=== PATIENT | male | born 1950 | race Hispanic/Latino ===

== ENCOUNTER 2017-05-21 07:15 | Day surgery (SDC) | payer BC ==
[2017-05-17 08:51] VITALS: BMI 34.6
[2017-05-21 07:53] LABS: BASO # 0.09 K/mm3 (0.0-2.0); BASO % 0.9 % (0.0-3.0); EOS # 0.6 (0.0-0.7); EOS % 5.5 % (1.5-5.0); GRAN # 6.59 (1.4-6.5); GRAN % 63.8 % (50.0-68.0); HEMATOCRIT 43.4 % (36.0-48.0); LYMPH # 2.1 (1.2-3.4); LYMPH % 20.1 % (22.0-35.0); MEAN CELL VOLUME 94.6 fl (80.0-105.0); MEAN CORPUSCULAR HEMOGLOBIN 32.7 pg (25.0-35.0); MEAN CORPUSCULAR HGB CONC 34.6 g/dl (31.0-37.0); MEAN PLATELET VOLUME 10.2 fl (7.0-11.0); MONO % 9.7 % (1.0-6.0); RED CELL DISTRIBUTION WIDTH 13.2 % (11.5-14.5); WHITE BLOOD COUNT 10.3 10^3/ul (4.5-11.0)
[2017-05-21 08:05] LABS: INR 1.13 (0.93-1.08); PARTIAL THROMBOPLASTIN TIME 30.1 Seconds (25.1-36.5)
[2017-05-21 08:07] LABS: BLOOD UREA NITROGEN 12 mg/dL (7-21); CALCIUM 9.1 mg/dL (8.4-10.5); CARBON DIOXIDE 31 mmol/L (21-33); CHLORIDE 102 mmol/L (98-107); CHOLESTEROL 190 mg/dL (130-200); GFR AFRICAN-AMERICAN > 60; GLUCOSE,RANDOM 121 mg/dL (70-110); POTASSIUM 3.3 mmol/L (3.6-5.0); SODIUM 140 mmol/L (132-148)
--- NOTE | 2017-05-21 08:16 | HP ---
REASON FOR ADMISSION: Implantation of permanent pacemaker. HISTORY OF PRESENT ILLNESS: This is a 67-year-old male with past medical history of sick sinus syndrome, chronic atrial fibrillation for many years, slow ventricular rate, pacemaker was suggested after having Holter for two to three months, but the patient has some social issues including the is getting a surgery, so the patient wanted to hold it off. The patient states that at times, he becomes dizzy when try to standup. Holter was then found to have lowest heart rate of 30, so the patient is scheduled for elective single chamber pacemaker on Sunday. The patient is electively being admitted for pacemaker implantation. PAST MEDICAL HISTORY: Significant for chronic atrial fibrillation with slow ventricular response, sick sinus syndrome, and benign prostatic hypertrophy. REVIEW OF SYSTEMS: As per HPI. Previous cardiac workup as follows; the patient had a stress test done that was essentially negative. The patient had echo showed [id number] MR, [id number] TR, and RV systolic pressure of 30, dated 11/14/2016. The patient had a stress test also on 11/14/2016, a stress thallium walk on the treadmill for 7 minutes and 30 seconds, but thallium was negative. Holter shows a lowest heart rate of 35, highest was in the 125, mean with a 65, dated 04/02/2017, by that time, the patient's heart rate greater than 30 and becomes very dizzy, especially when try to standup. The patient works in a plastic factory. ALLERGIES: NO KNOWN DRUG ALLERGIES. CURRENT MEDICATIONS: The patient is taking aspirin, amlodipine 10 mg, olmesartan 40 mg, Ginkgo biloba 500 mg daily, vitamin D2, Colace, Pradaxa 150 mg daily, last dose on 05/17/2017, turmeric powder, Flomax, potassium chloride, meclozine, and glucosamine. PHYSICAL EXAMINATION: VITAL SIGNS: As follows; height of the patient 5 feet 7 inches, weight of the patient is 221 pounds, and body mass index of 34.6 kg/m2. HEENT: PERRLA intact. NECK: Supple. No carotid bruits or thyromegaly. CHEST: Clear to auscultation. HEART: S1 and S2 regular. ABDOMEN: Soft. EXTREMITIES: Clubbing and cyanosis negative. IMPRESSION: Sick sinus syndrome, atrial fibrillation with slow ventricular rate, hypertension, hyperlipidemia, benign prostatic hypertrophy, and chronic atrial fibrillation for many years, on Pradaxa. RECOMMENDATIONS: Risks, benefits, and alternatives were discussed with the patient and the patient agreed. We will proceed for a permanent pacemaker. After the pacemaker, we will put low dose of beta-bobby to prevent tachycardia. Further recommendation after the pacemaker. Thank you for providing me the opportunity in taking care of patient, Jamie Beltrán. Franki Saab MD
[2017-05-21] MEDS ORDERED: Potassium Chloride 20 mEq ER Tab PO ONE (09:13)
[2017-05-21] MEDS ORDERED: Lidocaine 2% Inj (20ml) ONE ×2 (09:36→09:55)
[2017-05-21] MEDS ORDERED: Midazolam 2 MG/2 ML VIAL ONE (10:27)
[2017-05-21] MEDS ORDERED: Oxycodone/Acetaminophen 5/325 mg Tab PO PRN (12:23)
--- NOTE | 2017-05-21 12:31 | CARD ---
APPROVED REPORT HISTORY The Patient is a 67 year-old male with a history of Ch Afib with Slow VR and near Syncope PROCEDURES Insertion Single Chamber Ventricle Pacemaker MRI safe ADVISA SR, Medtronic VVIR ( single Chamber) INDICATIONS SSS Ch. Afib with slow VR , Heart rate 30's, Symptomatic Dizzyness Near syncope CONSCIOUS SEDATION AGENTS Versed Fentanyl IMPLANTED DEVICES Medtronic 5076-58CM V lead MRI Safe.. Active lead Pulse Generator. ADVISA SR MRI safe OPERATIVE NOTE The patient was brought to the Cardiac Catheterization Laboratory in a fasting state and was prepped and draped in a sterile manner. The left subclavian region was infiltrated with 2% Lidocaine, subcutaneous anesthesia. A transverse incision was made in the left subclavicular area. The subcutaneous pocket was formed via blunt dissection, Percutaneous venous access was achieved and an introducer sheath was inserted into the Lt Subclavian vein. Through the introducer sheath, the ventricular lead wire was postitioned in the right ventricular apex utilizing fluoroscopic guidance. The ventricular was advanced over the wire under fluoroscopic guidance and positioned in the right ventricle. Capturing and sensing thresholds were verified. THE VENTRICULAR ELECTRODE PARAMETERS R WAVE 7-8 THRESHOLD0.4 RESISTANCE 650 The ventricular lead was then secured using 0 silk. The subcutaneous pocket was irrigated with Betadine. The ventricular lead was attached to the appropriate receptacle on the pulse generator and set screws firmly tightened to insure adequate contact and stability. The lead and pulse generator were placed into the subcutaneous pocket. Sharp and sponge counts were confirmed to be correct. At this time the pocket was closed subcutaneously with a vicryl 2.0 and the skin was closed with a vicryl 4.0 .The operative site was dressed in sterile fashion. The patient tolerated the procedure well and was transferred to the floor in stable condition. COMPLICATIONS The patient tolerated the procedure well and there were no complications associated with the procedure. CONCLUSION Successful Implantation of Single Chamber pacemaker VVIR, ADVISA SR MRI safe ( pt can have MRI in future). CC; Dr. Jordan.
--- NOTE | 2017-05-21 13:41 | RAD ---
HISTORY: S /p Post Pacemaker, R/o Pneumothorax COMPARISON: No prior. FINDINGS: LUNGS: There is a patchy infiltrate at the right lung base PLEURA: No significant pleural effusion identified, no pneumothorax apparent. CARDIOVASCULAR: Normal. OSSEOUS STRUCTURES: No significant abnormalities. VISUALIZED UPPER ABDOMEN: Normal. OTHER FINDINGS: Single lead pacemaker IMPRESSION: Patchy infiltrate at the right lung base
[2017-05-21 22:23] VITALS: PULSE 60
--- NOTE | 2017-05-21 23:12 | CARD ---
APPROVED REPORT EKG Measurement Heart [id number] <Conclusion> Electronic ventricular pacemaker
[2017-05-22 06:01] VITALS: RESP 20; TEMP 98; O2SAT 93
[2017-05-22 07:20] LABS: BASO # 0.1 K/mm3 (0.0-2.0); EOS # 0.5 (0.0-0.7); EOS % 4.9 % (1.5-5.0); GRAN % 57.3 % (50.0-68.0); HEMATOCRIT 44.7 % (42.0-52.0); LYMPH # 2.9 (1.2-3.4); LYMPH % 27.4 % (22.0-35.0); MEAN CELL VOLUME 94.1 fl (80.0-105.0); MEAN CORPUSCULAR HEMOGLOBIN 31.6 pg (25.0-35.0); MEAN CORPUSCULAR HGB CONC 33.6 g/dl (31.0-37.0); MEAN PLATELET VOLUME 10.5 fl (7.0-11.0); MONO % 9.4 % (1.0-6.0); RED CELL DISTRIBUTION WIDTH 13.2 % (11.5-14.5); WHITE BLOOD COUNT 10.5 10^3/ul (4.5-11.0)
[2017-05-22 07:39] LABS: ALB/GLOB RATIO 1.5 (1.1-1.8); ALKALINE PHOSPHATASE 72 U/L (38-126); ALT/SGPT 26 U/L (7-56); AST/SGOT 18 U/L (17-59); BILIRUBIN,TOTAL 0.7 mg/dL (0.2-1.3); BLOOD UREA NITROGEN 15 mg/dL (7-21); CALCIUM 8.8 mg/dL (8.4-10.5); CARBON DIOXIDE 31 mmol/L (21-33); CHLORIDE 103 mmol/L (98-107); GFR AFRICAN-AMERICAN > 60; GLUCOSE,RANDOM 106 mg/dL (70-110); PHOSPHOROUS 2.8 mg/dL (2.5-4.5); POTASSIUM 3.2 mmol/L (3.6-5.0); SODIUM 139 mmol/L (132-148); TOTAL PROTEIN 6.3 g/dL (5.8-8.3)
[2017-05-22] MEDS ORDERED: Potassium Chloride 20 mEq ER Tab PO ONE ×2 (07:46→11:00)
[2017-05-22 09:37] VITALS: BP 120/76
--- NOTE | 2017-05-22 10:17 | RAD ---
HISTORY: s/p PPM ,R/o Pneumothorax COMPARISON: 05/21/2017 TECHNIQUE: Chest PA and lateral FINDINGS: LUNGS: No active pulmonary disease. PLEURA: No significant pleural effusion identified. No pneumothorax apparent. CARDIOVASCULAR: Normal. OSSEOUS STRUCTURES: No significant abnormalities. VISUALIZED UPPER ABDOMEN: Normal. OTHER FINDINGS: Single lead pacemaker IMPRESSION: No evidence of pneumothorax following pacemaker placement
--- NOTE | 2017-05-22 22:14 | CARD ---
APPROVED REPORT EKG Measurement Heart [id number] <Conclusion> Electronic ventricular pacemaker
--- NOTE | 2017-05-22 23:29 | DS ---
BRIEF CLINICAL HISTORY: This 67-year-old male with history of chronic atrial fibrillation, on anticoagulation with slow ventricular rate, symptomatic disease, heart rate goes 30 when the patient tries to bend down. The patient underwent permanent pacemaker elective single chamber VVI, MRI-safe. The patient remained stable. First x-ray negative for pneumothorax. Repeat chest x-ray done just now, bed film reviewed. No evidence of pneumothorax. Plan is to discharge home. MEDICATIONS: Continue previous medication include Pradaxa 150 mg b.i.d., amlodipine, olmesartan one tablet b.i.d., aspirin 81 mg daily, Flomax. In addition, the patient is getting Keflex 500 mg p.o. t.i.d. for 4 days to prevent infection, empirically being treated. Follow up plan with Dr. Avalos next Sunday at 2:45. We will supplement potassium because lab today shows WBC 10.5, hemoglobin 15, hematocrit 44.7, and platelet count 235. Chemistry shows sodium 113, potassium 3.8, chloride 103, carbon dioxide 31, anion gap of 8, BUN 15 and creatinine 0.7. FINAL DIAGNOSES: Sick sinus syndrome, tachybrady syndrome, chronic atrial fibrillation, hypokalemia, obesity, hypertension, benign prostatic hypertrophy. Principal procedure done this admission include implantation of permanent pacemaker single chamber VVI MRI-safe. Franki Saab MD
[2017-05-23] MEDS ORDERED: GLUCOSAMINE SULFATE DIPOT CHLR 1000 MG PO SCH (10:00)
[2017-05-23] MEDS ORDERED: TURMERIC ROOT EXTRACT 500 MG PO SCH (10:00)
[2017-05-23] MEDS ORDERED: GINSENG 100 MG PO SCH (10:00)
[2017-05-23] MEDS ORDERED: Potassium Chloride 10 mEq ER Tab PO SCH (10:00)
[2017-05-23] MEDS ORDERED: GINKGO BILOBA 500 MG PO SCH (10:00)
[2017-05-28] MEDS ORDERED: Ergocalciferol 50,000 Intl Units Cap PO SCH (10:00)
== END 2017-05-22 11:43 | disposition home or self-care (01) ==
LOC: EDSEX 07:15 → CATH 07:15 → 2RSO 12:47 → CATH 05-22 11:43
PROVIDERS: ATTEND Internal Medicine Cardiovascular Disease
DX: I49.5 Sick sinus syndrome (principal); I48.2 Chronic atrial fibrillation; E87.6 Hypokalemia; I10 Essential (primary) hypertension; N40.0 Benign prostatic hyperplasia without lower urinary tract symptoms; E78.5 Hyperlipidemia, unspecified; E66.9 Obesity, unspecified; Z68.34 Body mass index [BMI] 34.0-34.9, adult; Z79.01 Long term (current) use of anticoagulants
CPT/HCPCS: 33207; 36415 ×2; 71010; 71020; 80048; 80053; 80061; 83036; 83735; 84100; 84443; 85025 ×2; 85610; 85730; 86850; 86900; 93005 ×2; 99152; 99153; C1785; C1898; J0690; J2250; J3010; J7040

== ENCOUNTER 2017-06-02 13:06 | Emergency (ER) | payer BC ==
[2017-06-02 13:28] VITALS: RESP 16; BMI 35.6
[2017-06-02 14:07] LABS: BASO # 0.08 K/mm3 (0.0-2.0); BASO % 0.9 % (0.0-3.0); EOS # 0.5 (0.0-0.7); EOS % 5.8 % (1.5-5.0); GRAN # 5.65 (1.4-6.5); GRAN % 61.4 % (50.0-68.0); HEMATOCRIT 43.5 % (42.0-52.0); LYMPH # 2.1 (1.2-3.4); LYMPH % 23.2 % (22.0-35.0); MEAN CELL VOLUME 93.1 fl (80.0-105.0); MEAN CORPUSCULAR HEMOGLOBIN 32.8 pg (25.0-35.0); MEAN CORPUSCULAR HGB CONC 35.2 g/dl (31.0-37.0); MEAN PLATELET VOLUME 9.8 fl (7.0-11.0); MONO # 0.8 (0.1-0.6); MONO % 8.7 % (1.0-6.0); RED CELL DISTRIBUTION WIDTH 12.9 % (11.5-14.5); WHITE BLOOD COUNT 9.2 10^3/ul (4.5-11.0)
[2017-06-02 14:24] LABS: ALB/GLOB RATIO 1.6 (1.1-1.8); ALKALINE PHOSPHATASE 66 U/L (38-126); ALT/SGPT 27 U/L (7-56); AST/SGOT 18 U/L (17-59); BILIRUBIN,TOTAL 0.7 mg/dL (0.2-1.3); BLOOD UREA NITROGEN 12 mg/dL (7-21); CALCIUM 9.6 mg/dL (8.4-10.5); CARBON DIOXIDE 32 mmol/L (21-33); CHLORIDE 100 mmol/L (98-107); GFR AFRICAN-AMERICAN > 60; GLUCOSE,RANDOM 128 mg/dL (70-110); MAGNESIUM 1.9 mg/dL (1.7-2.2); POTASSIUM 3.3 mmol/L (3.6-5.0); SODIUM 139 mmol/L (132-148); TOTAL PROTEIN 6.6 g/dL (5.8-8.3)
[2017-06-02 14:30] LABS: TROPONIN I < 0.01 ng/mL
--- NOTE | 2017-06-02 15:06 | ED PDOC ---
Arrival/HPI - General Historian: Patient, Spouse - History of Present Illness Time/Duration: < week Symptom Onset: Gradual Symptom Course: Unchanged Activities at Onset: Rest, Light Context: Home <Alexandro Meier - Last Filed: 06/02/17 19:51> <Reed Ramsey DO - Last Filed: 06/02/17 20:54> - General Chief Complaint: Dizziness/Lightheaded Time Seen by Provider: 06/02/17 13:41 - History of Present Illness Narrative History of Present Illness (Text): 06/02/17 14:48 Mr. Beltrán is a 67 year old male with a past medical history significant for atrial fibrillation s/p pacemaker placement on 05/22 with [facility], sick sinus syndrome, BPPV, BPH who presents to the [facility] with a chief complaint of dizziness with associated nausea and high blood pressure this AM. Patient states that on evening he was in his normal state of health but that the next morning he awoke and felt dizzy and nauseous. This lasted throughout the day but was moderately relieved with patients prescribed meclazine. However , around 0200 this AM patient was noted to have a BP reading of 182/110. Patient took his BP medication and his repeat BP was 132/80. Given the elevation in BP, patient decided an evaluation was warranted. Patient currently denies fever, chills, dizziness, headache, changes in his vision, chest pain, palpitations, syncope, SOB, cough, wheezing, abdominal pain, N/V/D/C, burning with urination, hematuria, rash, numbness/tingling/weakness of any extremity or any seizures. (Alexandro Meier) Past Medical History - Provider Review Nursing Documentation Reviewed: Yes - Travel History Have you recently traveled outside [place] w/in the past 3 mons?: No - Past History Past History: No Previous - Infectious Disease Hx of Infectious Diseases: None - Tetanus Immunization Tetanus Immunization: Up to Date - Cardiac Hx Cardiac Disorders: Yes Hx Hypertension: Yes Hx Pacemaker: Yes - Pulmonary Hx Respiratory Disorders: No - Neurological Hx Neurological Disorder: No Hx Paralysis: No - HEENT Hx HEENT Disorder: Yes Hx Cataracts: Yes - Renal Hx Renal Disorder: No - Hematological/Oncological Hx Blood Disorders: No Hx Blood Transfusions: No - Integumentary Hx Dermatological Disorder: No - Musculoskeletal/Rheumatological Hx Musculoskeletal Disorders: Yes - Gastrointestinal Hx Gastrointestinal Disorders: No - Genitourinary/Gynecological Hx Genitourinary Disorders: No - Psychiatric Hx Psychophysiologic Disorder: No Hx Emotional Abuse: No Hx Physical Abuse: No Hx Substance Use: No - Surgical History Other/Comment: hernia x3 2008 - Anesthesia Hx Anesthesia Reactions: No Hx Malignant Hyperthermia: No - Suicidal Assessment Feels Threatened In Home Enviroment: No <Alexandro Meier - Last Filed: 06/02/17 19:51> Family/Social History Smoking Status: Current Some Days Smoker Hx Alcohol Use: No Hx Substance Use: No <Alexandro Meier - Last Filed: 06/02/17 19:51> - Physician Review Nursing Documentation Reviewed: Yes Family/Social History: No Known Family HX <Reed Ramsey DO - Last Filed: 06/02/17 20:54> Allergies/Home Meds <Alexandro Meier - Last Filed: 06/02/17 19:51> <Reed Ramsey DO - Last Filed: 06/02/17 20:54> Allergies/Adverse Reactions: Allergies No Known Allergies Allergy (Verified 06/02/17 13:16) Home Medications: Home Meds Medication Instructions Recorded Confirmed Amlodipine Bes/Olmesartan Med 1 tab PO DAILY 05/17/17 06/02/17 [Amlodipine-Olmesartan 10-40 mg] Aspirin [Ecotrin] 81 mg PO DAILY 05/17/17 06/02/17 Dabigatran [Pradaxa] 150 mg PO DAILY 05/17/17 06/02/17 Docusate [Colace] 100 mg PO DAILY 05/17/17 06/02/17 Ergocalciferol (Vitamin D2) 50,000 unit PO MON 05/17/17 06/02/17 [Vitamin D2] Ginkgo Biloba 500 mg PO DAILY 05/17/17 06/02/17 Ginseng 100 mg PO DAILY 05/17/17 06/02/17 Glucosamine Sulfate Dipot Chlr 1,000 mg PO DAILY 05/17/17 06/02/17 [Glucosamine] Meclizine [Antivert] 25 mg PO Q6 PRN 05/17/17 06/02/17 Potassium Chloride [Klor-Con 10] 10 meq PO DAILY 05/17/17 06/02/17 Tamsulosin [Flomax] 0.4 mg PO DAILY 05/17/17 06/02/17 Turmeric Root Extract [[facility] 500 mg PO DAILY 05/17/17 06/02/17 Turmeric] Review of Systems - Physician Review All systems were reviewed & negative as marked: Yes - Review of Systems Constitutional: Normal. absent: Fevers, Night Sweats Eyes: Normal ENT: Normal Respiratory: Normal. absent: SOB, Cough Cardiovascular: Normal. absent: Chest Pain, Palpitations, Syncope Gastrointestinal: Normal. absent: Abdominal Pain, Constipation, Diarrhea, Nausea, Vomiting Genitourinary Male: Normal. absent: Dysuria Musculoskeletal: Normal. absent: Back Pain, Neck Pain Skin: Normal. absent: Rash Neurological: Dizziness. absent: Normal, Headache, Focal Weakness, Speech Changes Endocrine: Normal Hemo/Lymphatic: Normal Psychiatric: Normal <Alexandro Meier - Last Filed: 06/02/17 19:51> Physical Exam Vital Signs Reviewed: Yes Temperature: Afebrile Blood Pressure: Normal Pulse: Regular Respiratory Rate: Normal Appearance: Positive for: Well-Appearing, Non-Toxic, Comfortable Pain Distress: None Mental Status: Positive for: Alert and Oriented X 3 - Systems Exam Head: Present: Atraumatic, Normocephalic Pupils: Present: PERRL Extroacular Muscles: Present: EOMI Conjunctiva: Present: Normal Mouth: Present: Moist Mucous Membranes Neck: Present: Normal Range of Motion, Trachea Midline. No: Meningeal Signs, MIDLINE TENDERNESS, Paraspinal Tenderness, JVD, Lymphadenopathy Respiratory/Chest: Present: Clear to Auscultation, Good Air Exchange. No: Respiratory Distress, Accessory Muscle Use, Wheezes, Decreased Breath Sounds, Rales, Retracting, Rhonchi, Tachypneic Cardiovascular: Present: Regular Rate and Rhythm, Normal S1, S2, Peripheal Pulses Present. No: Murmurs, Irregular Rhythm, Tachycardic, Bradycardic Abdomen: Present: Normal Bowel Sounds. No: Tenderness, Distention, Peritoneal Signs Back: Present: Normal Inspection. No: CVA Tenderness, Midline Tenderness, Paraspinal Tenderness, Pain with Leg Raise Upper Extremity: Present: Normal Inspection. No: Cyanosis, Edema Lower Extremity: Present: Normal Inspection. No: Edema Neurological: Present: GCS=15, CN II-XII Intact, Speech Normal Skin: Present: Warm, Dry, Normal Color. No: Rashes Lymphatic: No: Cervical Adenopathy Psychiatric: Present: Alert, Oriented x 3, Normal Insight, Normal Concentration <Alexandro Meier - Last Filed: 06/02/17 19:51> Vital Signs Temp Pulse Resp BP Pulse Ox 06/02/17 16:57 98.1 F 62 16 127/78 96 06/02/17 14:44 97.9 F 62 16 135/78 99 06/02/17 13:09 97.4 F L 85 16 133/81 97 Medical Decision Making - Lab Interpretations Interpretation: All labs normal - RAD Interpretation Interventionist: ED Physician - EKG Interpretation Interpreted by ED Physician: Yes Comparison: Com.w/previous EKG <Alexandro Meier - Last Filed: 06/02/17 19:51> <Reed Ramsey DO - Last Filed: 06/02/17 20:54> ED Course and Treatment: 06/02/17 15:44 Impression: 67 year old male with a past medical history significant for atrial fibrillation s/p pacemaker placement on 05/22 with [facility], sick sinus syndrome, BPPV, BPH who presents to the [facility] with a chief complaint of dizziness with associated nausea and high blood pressure this AM. Plan: -CBC, CMP, Coags, UA -Chest X-Ray -EKG -Meclazine STAT -Reassess and disposition Prior Visits: 05/22/17: Patient was here for pacemaker placement 06/02/17 16:29 Upon reevaluation patient reports that he is no longer feeling his presenting dizziness or nausea after meclazine administration. Patient and his report that they are ready to go home and that they intend to schedule an appointment to discuss patients continued dizziness. (Alexandro Meier) 06/02/17 17:21 Patient Seen With Resident: In agreement with resident note which contains more details about the patient. Patient was seen and evaluated with resident. Came up with plan and treatment together. 67 year old male whose past medical history is significant for atrial fibrillation s/p pacemaker, sick sinus syndrome, BPPV, BPH presents to emergency department with a chief complaint of dizziness with associated nausea and high blood pressure this AM. Treatment plan includes chest x-ray, ekg, meclazine, and labs. (Reed Ramsey DO) - Lab Interpretations Lab Results: 06/02/17 14:00 06/02/17 14:00 Lab Results 06/02/17 14:00: Sodium 139, Potassium 3.3 L, Chloride 100, Carbon Dioxide 32, Anion Gap 10, BUN 12, Creatinine 0.7 L, Est GFR ( Amer) > 60, Est GFR ( Non-Af Amer) > 60, Random Glucose 128 H, Calcium 9.6, Magnesium 1.9, Total Bilirubin 0.7, AST 18, ALT 27, Alkaline Phosphatase 66, Lactate Dehydrogenase 493, Total Creatine Kinase 45, Troponin I < 0.01, NT-Pro-B Natriuret Pep 515 H, Total Protein 6.6, Albumin 4.0, Globulin 2.5, Albumin/Globulin Ratio 1.6 06/02/17 14:00: WBC 9.2, RBC 4.67, Hgb 15.3, Hct 43.5, MCV 93.1, MCH 32.8, MCHC 35.2, RDW 12.9, Plt Count 271, MPV 9.8, Gran % 61.4, Lymph % (Auto) 23.2, [place] % (Auto) 8.7 H, Eos % (Auto) 5.8 H, Baso % (Auto) 0.9, Gran # 5.65, Lymph # 2.1 , [place] # 0.8 H, Eos # 0.5, Baso # 0.08 - RAD Interpretation Radiology Orders: 06/02/17 13:44 CHEST PORTABLE [RAD] Stat - Medication Orders Current Medication Orders: Discontinued Medications Meclizine HCl (Antivert) 25 mg PO STAT STA Stop: 06/02/17 14:31 Last Admin: 06/02/17 14:20 Dose: 25 mg Potassium Chloride (K-Dur 20 Meq Er Tab) 40 meq PO STAT STA Stop: 06/02/17 15:49 Last Admin: 06/02/17 16:02 Dose: 40 meq <Alexandro Meier - Last Filed: 06/02/17 19:51> - PA / PROGRAM CONSULTANT / Resident Statement / has reviewed & agrees with the documentation as recorded. / has examined the patient and agrees with the treatment plan. - Scribe Statement The provider has reviewed the documentation as recorded by the Scribe <Reed Ramsey DO - Last Filed: 06/02/17 20:54> - Scribe Statement Wendy Salomon Provider Scribe Attestation: All medical record entries made by the Scribe were at my direction and personally dictated by me. I have reviewed the chart and agree that the record accurately reflects my personal performance of the history, physical exam, medical decision making, and the department course for this patient. I have also personally directed, reviewed, and agree with the discharge instructions and disposition. (Reed Ramsey DO) Disposition/Present on Arrival - Present on Arrival Any Indicators Present on Arrival: No History of DVT/PE: No History of Uncontrolled Diabetes: No Urinary Catheter: No History of Decub. Ulcer: No History Surgical Site Infection Following: None - Disposition Have Diagnosis and Disposition been Completed?: Yes Disposition Time: 16:28 Patient Plan: Discharge <Alexandro Meier - Last Filed: 06/02/17 19:51> <Reed Ramsey DO - Last Filed: 06/02/17 20:54> - Disposition Diagnosis: Vertigo Disposition: HOME/ ROUTINE Condition: STABLE Discharge Instructions (ExitCare): Vertigo (ED) Additional Instructions: Jerel, thank you for letting us take care of you today. Your provider was Dr. Ramsey. You were treated for vertigo. The emergency medical care you received today was directed at your acute symptoms. If you were prescribed any medication, please fill it and take as directed. It may take several days for your symptoms to resolve. Return to the Emergency Department if your symptoms worsen, do not improve, or if you have any other problems. Please contact your doctor or call one of the physicians/clinics you have been referred to that are listed on the Patient Visit Information form that is included in your discharge packet. Bring any paperwork you were given at discharge with you along with any medications you are taking to your follow up visit. Our treatment cannot replace ongoing medical care by a primary care provider (PCP) outside of the emergency department. PLEASE FOLLOW UP WITH YOUR PRIMARY CARE PHYSICIAN WITHIN ONE WEEK Thank you for allowing the [facility] team to be part of your care today. If you had an X-Ray or CT scan: A Radiologist will review the ED reading if any change in treatment is needed we will contact you. Referrals: PCP,NO [Primary Care Provider] - Follow up with primary Forms: Pinpoint MD (Persian)
[2017-06-02 15:45] VITALS: PULSE 62
[2017-06-02] MEDS ORDERED: Potassium Chloride 20 mEq ER Tab PO STA (15:48)
[2017-06-02 16:59] VITALS: BP 127/78; TEMP 98.1; O2SAT 96
--- NOTE | 2017-06-02 17:01 | RAD ---
HISTORY: chest pain COMPARISON: 05/22/2017 FINDINGS: LUNGS: No active pulmonary disease. PLEURA: No significant pleural effusion identified, no pneumothorax apparent. CARDIOVASCULAR: Mild cardiomegaly. Single lead pacemaker OSSEOUS STRUCTURES: No significant abnormalities. VISUALIZED UPPER ABDOMEN: Normal. OTHER FINDINGS: None. IMPRESSION: No active disease.
--- NOTE | 2017-06-03 08:57 | CARD ---
APPROVED REPORT EKG Measurement Heart [id number] <Conclusion> Atrial fibrillation with premature ventricular or aberrantly conducted complexes ST & T wave abnormality, consider inferolateral ischemia or digitalis effect Prolonged QT C/W prior ECG 05/22/17: No paced beats now.
== END 2017-06-02 16:57 | disposition home or self-care (01) ==
LOC: ED 13:06
DX: R42 Dizziness and giddiness (principal); I10 Essential (primary) hypertension; I48.91 Unspecified atrial fibrillation; N40.0 Benign prostatic hyperplasia without lower urinary tract symptoms